=== PATIENT | female | born 1955 | race Caucasian/White ===

== ENCOUNTER → 2018-04-09 | Outpatient (CLI) | payer OTHER ==
[2018-04-09 09:40] LABS: Basophils % (A) 0 %; Eosinophils # (A) 0.3 k/uL (0-0.7); Eosinophils % (A) 5 %; HCT 34.9 % (34.0-46.0); HGB 11.2 gm/dL (11.4-16.0); Lymphocytes # (A) 1.1 k/uL (1.0-4.8); Lymphocytes % (A) 22 %; MCHC 32.1 g/dL (31.0-37.0); MCV 87.3 fL (80.0-100.0); Mean Platelet Volume 7.7; Monocytes # (A) 0.4 k/uL (0-1.0); Monocytes % (A) 7 %; Neutrophils # (A) 3.3 k/uL (1.3-7.7); Neutrophils % (A) 64 %; Platelet Count 256 k/uL (150-450); RDW 14.2 % (11.5-15.5); WBC 5.1 k/uL (3.8-10.6)
[2018-04-09 10:39] LABS: Albumin 4.3 g/dL (3.5-5.0); Calcium 9.9 mg/dL (8.4-10.2); Potassium 4.4 mmol/L (3.5-5.1); Total Bilirubin 0.2 mg/dL (0.2-1.3); Total Protein 6.7 g/dL (6.3-8.2)
[2018-04-09 10:47] LABS: Erythrocyte Sedimentation Rate 15 mm/hr (0-20)
[2018-04-09 10:53] LABS: T4, Free (Free Thyroxine) 0.87 ng/dL (0.78-2.19)
== END | disposition home or self-care (01) ==
LOC: LABWHC1 09:02
PROVIDERS: ATTEND Family Medicine
DX: Z00.00 Encounter for general adult medical examination without abnormal findings (principal); E11.9 Type 2 diabetes mellitus without complications; M25.50 Pain in unspecified joint
CPT/HCPCS: 36415; 80053; 80061; 83036; 84439; 84443; 85025; 85652; 86038; 86431; 86780

== ENCOUNTER → 2018-04-13 | Outpatient (CLI) | payer OTHER ==
--- NOTE | 2018-04-13 15:46 | US ---
EXAMINATION TYPE: US kidneys/renal and bladder DATE OF EXAM: 04/13/2018 COMPARISON: US CLINICAL HISTORY: E11.9 Type II Diabetes; decreasing renal function per patient EXAM MEASUREMENTS: Right Kidney: 10.3 x 6.0 x 5.1 cm Left Kidney: 10.0 x 5.3 x 5.4 cm Post Void Residual Volume: 12.0 mL Right Kidney: No hydronephrosis or masses seen; possible duplicate collecting system is noted by hypo echoic renal cortex noted mid pole from lateral to medial kidney Left Kidney: No hydronephrosis or masses seen; adjacent to mid and lower cortex a hypoechoic crescent shaped area is noted as the sonographic "sweat sign" and suggests chronic medical renal disease Bladder: not fully distended Bilateral Jets seen: yes, smaller right jet is noted Normal Post Void Residual: Yes There is no evidence for hydronephrosis at this point in time. No nephrolithiasis is seen. No paulette s are identified. The urinary bladder is not greatly distended. Bilateral ureteral jets are seen. IMPRESSION: No hydronephrosis is evident bilaterally.
== END | disposition home or self-care (01) ==
LOC: RADUSWWP 14:56
PROVIDERS: ATTEND Family Medicine
DX: E11.9 Type 2 diabetes mellitus without complications (principal)
CPT/HCPCS: 76770